=== PATIENT | male | born 1965 | race Caucasian/White ===

== ENCOUNTER 2017-12-11 12:37 | Emergency (ER) | payer OTHER, SELFPAY ==
[2017-12-11 12:38] VITALS: BP 164/87; PULSE 91; RESP 18; TEMP 36.4; O2SAT 97; BMI 52.4
--- NOTE | 2017-12-11 13:43 | RAD_ITS ---
STUDY: X-RAY CHEST REASON FOR EXAM: Male, 52 years old. 3 with urination and first. TECHNIQUE: PA and lateral views of the chest. COMPARISON: None. FINDINGS: EKG electrodes are seen. The lungs are clear and expanded. There is no demonstrated pleural abnormality. Normal size heart. Normal mediastinum and aida. Normal visualized pulmonary arteries. Normal visualized aortic arch and descending thoracic aorta. Normal visualized thoracic spine. Normal visualized ribs, clavicles, and shoulders. There is no demonstrated abnormality of the visualized soft tissue structures of the upper abdomen. RAD/Chest PA and Lateral IMPRESSION: Normal x-ray examination of the chest. Electronically Signed: Galileo Sotomayor MD at 14:58 EDT Tel [phone], Service support ,
--- NOTE | 2017-12-11 13:43 | EKG12_ITS ---
Test Reason : Blood Pressure : / mmHG Vent. Rate : 075 BPM Atrial Rate : 075 BPM P-R Int : 188 ms QRS Dur : 116 ms QT Int : 402 ms P-R-T Axes : 052 028 058 degrees QTc Int : 448 ms Normal sinus rhythm Normal ECG Confirmed by ESTELA DIXON, STACI ([id number]), restaurant expeditor DENISE BOLIVAR ([id number]) on 12/13/2017 3:20:14 PM Referred By: AVERY Confirmed By:STACI PALMER MD
[2017-12-11 13:46] LABS: Bedside Glucose > 500 mg/dL (70-110)
[2017-12-11 14:00] LABS: Absolute Lymphocyte Count 2.28 X10^3/ul (0.83-4.51); Absolute Neutrophil Count 4.1 X10^3/uL (2.0-7.7); Basophil# 0.01 X10^3/uL; Basophil% 0.1 % (0-1); Eosinophils% 1.5 % (0-5); Hematocrit 40.3 % (40-54); Hemoglobin 14.1 g/dl (13.0-16.5); Lymphocyte # 2.28 X10^3/ul (4.0); Lymphocyte % 33.1 % (19-41); Mean Corpuscular Hgb 29.5 pg (27.0-32.0); Mean Corpuscular Volume 84.3 fL (80-94); Mean Platelet Vol. 10.1 fl (6.2-12.0); Monocyte# 0.38 X10^3/uL; Monocyte% 5.5 % (0-10); Neutrophil # 4.09 X10^3/uL (2.7-7.7); Neutrophil % 59.5 % (47-70); Platelet Count 253 K/mm3 (150-450); RBC Distribution Width CV 12.6 % (11.6-14.6); RBC Distribution Width SD 38.5 fl (35.1-43.9); Red Blood Count 4.78 M/mm3 (4.6-6.2); White Blood Count 6.9 K/mm3 (4.4-11.0)
[2017-12-11 14:04] LABS: POSITIVE COUNT NO; POSITIVE DIFFERENTIAL NO; POSITIVE MORPHOLOGY NO
[2017-12-11] MEDS: 0.9% Normal Saline 1,000 ML 999 ML IV (14:07)
[2017-12-11 14:25] LABS: Bacteria 0 SEEN /hpf (None Seen); Mucous, Urine 0 SEEN /hpf (<or=2+); Red Blood Cells-Urine 0 SEEN /hpf (0-5); Squamous Epithelial Cells - UA 0 SEEN /hpf (0-5); White Blood Cells 0 SEEN /hpf (0-5)
[2017-12-11 14:27] LABS: Hemoglobin A1c 9.5 % (4.2-6.3)
[2017-12-11 14:29] LABS: Color, Urine Yellow (Yellow); Glucose, Dipstick 1000 mg/dl (Normal); Ketone-Dipstick Negative (Negative); Leukocyte Esterase-Dipstick Negative /ul (Negative); Nitrite-Dipstick Negative (Negative); Occult Blood-Urine Negative /ul (Negative); Protein-Dipstick Negative (Negative); Specific Gravity, Urine 1.015 (1.002-1.030); Urine Bilirubin Dipstick Negative (Negative); Urine Clarity Sl. Cloudy (Clear); Urine Urobilinogen Normal (Normal)
[2017-12-11 14:31] LABS: Anion Gap 9 (5-15); BUN 22 mg/dL (7-18); BUN/Creat Ratio 16.8 RATIO (10-20); Chloride 94 mmol/L (98-107); Creatinine, Serum 1.31 mg/dL (0.70-1.30); EST Glomerular Filtration Rate 61 mL/min (>60); Est Glom Filt Rate - Afr Amer 74 mL/min (>60); Estimated Creatinine Clearance 74.05 ml/min; Glucose 522 mg/dL (74-106); Phosphorus 2.3 mg/dL (2.5-4.9); Potassium 3.6 mmol/L (3.5-5.1); Sodium Level 130 mmol/L (136-145)
--- NOTE | 2017-12-11 14:31 | ED.RN ---
GLUCOSE OF 522 CALLED FROM THE LAB
[2017-12-11 15:39] VITALS: BP 149/67; PULSE 67; RESP 18; O2SAT 98
--- NOTE | 2017-12-11 16:38 | ED.DCSUM_ITS ---
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 He reports that he has had polydipsia for the past few days. He has had polyuria for months. Remeasured his blood sugar over the weekend and it ranged anywhere from 360 to high. On review of systems he complains of an occasional cough and frequent urination with large volumes. He denies any other complaints. Physical Examination: Vitals: Stable. Afebrile. General: Well-nourished and well-developed. Head: Normocephalic atraumatic. Neck: Supple, no lymphadenopathy. No JVD. Nontender. Cardiovascular: Regular rate and rhythm. No murmurs. Respiratory: No respiratory distress. Clear to auscultation bilaterally. Abdominal: Soft, nontender, nondistended, normal bowel sounds. No guarding, rebound, or peritoneal signs. Back: Nontender. Extremities: Nontender, no edema. Skin: Normal color, no rash. Neurologic: Alert and oriented ?3. Cranial nerves II through XII are intact. Normal strength and sensation. Psych: Normal affect. Test Results: EKG is sinus at 75 with no acute changes. Troponin is negative. Serum ketones are negative. UA shows glucose only. Chem-7 is more for sodium 130, chloride 94, glucose of 522, BUN 22, creatinine 1.31. CBC is normal. Chest x-ray is normal. Magnesium is normal. Phosphorus is 2.3. Hemoglobin A1c is 9.5 suggesting that his blood sugars average 226 over the past 3 months. Emergency Department Course and Treatment: Patient was given 2 L bolus normal saline. He was given metformin p.o. Treatment Plan: I did attempt to reach Dr. Lomeli without success. Patient will be started on metformin ER and instructed follow-up Dr. Lomeli in 3-5 days for another exam. He feels well and would like to go home. His has a history of type 2 diabetes mellitus. She has a monitor and a lot of experience with dealing with this. She is comfortable with him going home as well. Return to the emergency department for any worsening symptoms. Disposition: To home in improved and stable condition. Impression:. Type 2 diabetes mellitus, new onset. This note was generated with [employer] software. It may contain incorrect words, spelling, and punctuation that were not noted in review of the chart prior to signing ED Disposition - Plan for ED Patient: Disposition: Home or Assisted Living Chief Complaint: Hyperglycemia Instructions: ED Hyperglycemia Diabetic Prescriptions: Metformin HCl [Metformin HCl ER] 500 mg PO QHS #[id number] Referrals: Bishop Lomeli [Primary Care Provider] - 1-2 Days if not improving
[2017-12-11 17:08] VITALS: BP 151/75; PULSE 67; RESP 18; O2SAT 98
== END 2017-12-11 17:09 | disposition home or self-care (01) ==
PROVIDERS: Emergency Provider Emergency Medicine
DX: E11.9 Type 2 diabetes mellitus without complications (principal); I10 Essential (primary) hypertension; R05 Cough; Z79.899 Other long term (current) drug therapy
CPT/HCPCS: 71046; 80048; 81001; 82009; 82962; 83036; 83735; 84100; 84484; 85025; 93005; 96360; 96361; 99284; J7030; A4216